=== PATIENT | female | born 1975 | race American Indian/Alaskan Native ===

== ENCOUNTER 2018-08-18 15:32 | Emergency (ER) | payer MEDICAID, OTHER ==
[2018-08-18 16:32] LABS: ANION GAP 11.4; CHLORIDE,CL 105 mmol/L (101-111); SODIUM,NA 135 mmol/L (135-145)
--- NOTE | 2018-08-18 16:32 | EDM.PDOC ---
ED HPI GENERAL MEDICAL PROBLEM - General Chief Complaint: Flank Pain Stated Complaint: [facility] Time Seen by Provider: 08/18/18 16:32 Source of Information: Reports: Patient, EMS, EMS Notes Reviewed, Provider (Dr. Adame), RN, RN Notes Reviewed History Limitations: Reports: No Limitations - History of Present Illness INITIAL COMMENTS - FREE TEXT/NARRATIVE: Patient presents to ER per [facility] from [facility] with complaint of back pain since Friday evening, headaches and fever. Rates her pain 8/10. She has had no chest pain, shortness of breath, nausea, vomiting, diarrhea, urinary symptoms or cough. Onset Date: 08/16/18 Duration: Getting Worse Location: Reports: Back Quality: Reports: Ache Severity: Severe Improves with: Reports: None Worsens with: Reports: None Associated Symptoms: Reports: No Other Symptoms Left Flank Pain Score (Numeric/FACES): 8 - Related Data Allergies Allergy/AdvReac Type Severity Reaction Status Date / Time No Known Allergies Allergy Verified 08/18/18 15:42 Past Medical History - Past Health History Medical/Surgical History: Denies Medical/Surgical History Social & Family History - Tobacco Use Smoking Status *Q: Current Every Day Smoker Years of Tobacco use: 1 Packs/Tins Daily: 0.3 ED ROS GENERAL - Review of Systems Review Of Systems: ROS reveals no pertinent complaints other than HPI. ED EXAM, RENAL/ - Physical Exam Exam: See Below Exam Limited By: No Limitations General Appearance: Anxious (and tearful) Eye Exam: Bilateral Eye: EOMI, Normal Inspection, PERRL Ears: Normal External Exam, Normal Canal, Hearing Grossly Normal, Normal TMs Nose: Normal Inspection, Normal Mucosa, No Blood Throat/Mouth: Normal Inspection, Normal Lips, Normal Teeth, Normal Gums, Normal Oropharynx, Normal Voice, No Airway Compromise Head: Atraumatic, Normocephalic Neck: Normal Inspection, Supple, Non-Tender, Full Range of Motion Respiratory/Chest: No Respiratory Distress, Lungs Clear, Normal Breath Sounds, No Accessory Muscle Use, Chest Non-Tender Cardiovascular: Normal Peripheral Pulses, Regular Rate, Rhythm, No Edema, No Gallop, No JVD, No Murmur, No Rub GI/Abdominal: Normal Bowel Sounds, Soft, Non-Tender, No Organomegaly, No Distention, No Abnormal Bruit, No Mass (Female) Exam: Deferred Rectal (Female) Exam: Deferred Back Exam: CVA Tenderness (L), CVA Tenderness (R) Extremities: Normal Inspection, Normal Range of Motion, Non-Tender, Normal Capillary Refill, No Pedal Edema Neurological: Alert, Oriented, CN II-XII Intact, Normal Cognition, Normal Gait, Normal Reflexes, No Motor/Sensory Deficits Psychiatric: Anxious, Tearful Skin Exam: Warm, Dry, Intact, Normal Color, No Rash Lymphatic: No Adenopathy Course - Vital Signs Last Recorded V/S: Last Vital Signs Temp 97.9 F 08/18/18 15:10 Pulse 94 08/18/18 15:10 Resp 20 08/18/18 15:10 BP 109/69 08/18/18 15:10 Pulse Ox 100 08/18/18 15:10 - Orders/Labs/Meds Orders: Active Orders 24 hr Category Date Time Status CULTURE URINE [RM] Stat Lab 08/18/18 16:02 Received Labs: Laboratory Tests 08/18/18 08/18/18 08/18/18 Range/Units 16:02 16:06 16:06 WBC 15.8 H (5.0-10.0) 10^3/uL RBC 4.92 (4.2-5.4) 10^6/uL Hgb 10.5 L D (12.0-16.0) g/dL Hct 34.4 L (37.0-47.0) % MCV 69.9 L D (80-100) fL MCH 21.3 L (27.0-34.0) pg MCHC 30.5 L (33.0-35.0) g/dL Plt Count 265 (150-450) 10^3/uL Neut % (Auto) 79.4 H (42.2-75.2) % Lymph % (Auto) 10.4 L (20.5-50.1) % [place] % (Auto) 9.4 H (2-8) % Eos % (Auto) 0.7 L (1.0-3.0) % Baso % (Auto) 0.1 (0.0-1.0) % Sodium 135 (135-145) mmol/L Potassium 3.4 L (3.6-5.0) mmol/L Chloride 105 (101-111) mmol/L Carbon Dioxide 22.0 (21.0-31.0) mmol/L Anion Gap 11.4 BUN 6 L (7-18) mg/dL Creatinine 0.8 (0.6-1.3) mg/dL Est Cr Clr Drug Dosing 74.23 mL/min Estimated GFR (MDRD) > 60 BUN/Creatinine Ratio 7.50 Glucose 100 (74-105) mg/dL Calcium 8.0 L (8.4-10.2) mg/dl Total Bilirubin 0.6 (0.2-1.0) mg/dL AST 12 (10-42) IU/L ALT 10 (10-60) IU/L Alkaline Phosphatase 71 (42-121) IU/L Total Protein 6.8 (6.7-8.2) g/dl Albumin 3.2 (3.2-5.5) g/dl Globulin 3.6 Albumin/Globulin Ratio 0.89 Urine Color Yellow (YELLOW) Urine Appearance Slightly cloudy (CLEAR) Urine pH 5.5 (5.0-9.0) Ur Specific [place] <= 1.005 (1.005-1.030) Urine Protein Negative (NEGATIVE) Urine Glucose (UA) Negative (NEGATIVE) Urine Ketones Negative (NEGATIVE) Urine Occult Blood Trace-intact H (NEGATIVE) Urine Nitrite Negative (NEGATIVE) Urine Bilirubin Negative (NEGATIVE) Urine Urobilinogen 0.2 (0.2-1.0) mg/dL Ur Leukocyte Esterase Small H (NEGATIVE) Urine RBC 0-5 /HPF Urine WBC 20-30 H (0-5/HPF) /HPF Ur Epithelial Cells Moderate H /HPF Amorphous Sediment Few (0/HPF) /HPF Urine Bacteria Few (0-FEW/HPF) /HPF Urine Mucus Rare /LPF Meds: Medications Discontinued Medications Generic Name Dose Route Start Last Admin Trade Name Freq PRN Reason Stop Dose Admin Ciprofloxacin 500 mg 08/18/18 18:14 Ciprofloxacin Hcl PO 08/18/18 18:15 ONETIME ONE Hydromorphone HCl 1 mg 08/18/18 16:42 08/18/18 16:51 Dilaudid IVPUSH 08/18/18 16:43 1 mg ONETIME ONE Administration Iopamidol 75 ml 08/18/18 16:59 Isovue-300 (61%) IVPUSH 08/18/18 17:00 ONETIME ONE - Radiology Interpretation Free Text/Narrative:: CT abdomen and pelvis: No signs of acute peritonitis. No renal stones or obstructive uropathy. Small left renal and possible urinary bladder lesions ( see above). See rad report. Departure - Departure Time of Disposition: 18:15 Disposition: Home, Self-Care 01 Condition: Fair Clinical Impression: UTI, Urinary tract infectious disease, Pyelonephritis - Discharge Information *PRESCRIPTION DRUG MONITORING PROGRAM REVIEWED*: No *COPY OF PRESCRIPTION DRUG MONITORING REPORT IN PATIENT MARCELO: No Instructions: Urinary Tract Infection, Adult, [id number], Pyelonephritis, Adult, [id number] Forms: ED Department Discharge Additional Instructions: RX: Cipro May use Tylenol and/or Ibuprofen as directed for pain Drink plenty of water Follow up with your primary care facility regarding suspicious spots on the kidneys and bladder. - My Orders Last 24 Hours: My Active Orders 08/18/18 16:02 CULTURE URINE [RM] Stat - Assessment/Plan Last 24 Hours: My Active Orders 08/18/18 16:02 CULTURE URINE [RM] Stat
[2018-08-18] MEDS ORDERED: HYDROmorphone 1 MG/ML Syringe IVPUSH ONE (16:42)
[2018-08-18] MEDS ORDERED: Iopamidol 612 MG/ML 75 ML Bottle IVPUSH ONE (16:59)
--- NOTE | 2018-08-18 17:25 | CT ---
Medical history: 43-year-old 175 pound female "smoker" with left flank (back) pain and leukocytosis (15,800). Trace hematuria. Scan technique: Volume acquisition of data from the abdomen and pelvis obtained without oral contrast but during the intravenous administration 75 cc nonionic Isovue (3 cc/s via injector) while patient was lying supine on the slice scanner [place], [place]. All data archived in the PACS system for storage, reformatting and study. Interpretation: 1. Symmetric normal reniform size, axis and configuration. Two (2) small round cortical lesions located respectively mid pole anteriorly and posteriorly lower pole left kidney that may represent infected or hemorrhagic cyst but cannot exclude a neoplasm and recommend elective follow-up ultrasound or MRI exam. 2. No sign of nephrolithiasis or obstructive uropathy. Symmetrically distended urinary bladder has a focal area of wall thickness anterior superiorly on the right and also warrants follow-up. No intraluminal bladder stones. 3. Cholecystectomy. Liver, stomach, spleen, pancreas and adrenal glands unremarkable i.e. negative. Normal appendix RLQ. 4. Normal caliber aortoiliac vessels. No aneurysm or dissection. Normal lumbar spine without sign of disc disease or fracture. 5. Midline uterus unremarkable. No adnexal mass lesion or mesenteric/retroperitoneal lymphadenopathy. 6. No abdominal mass lesion, signs of mechanical bowel obstruction, inflammatory "dirty" peritoneal fat, ascites or free intraperitoneal air. CONCLUSION: No signs of acute peritonitis. No renal stones or obstructive uropathy. Small left renal and possible urinary bladder lesions (see above).
[2018-08-18] MEDS ORDERED: Ciprofloxacin 500 MG Tab PO ONE (18:14)
== END 2018-08-18 18:28 | disposition home or self-care (01) ==
LOC: DL.ED 15:32
DX: N12 Tubulo-interstitial nephritis, not specified as acute or chronic (principal); F17.210 Nicotine dependence, cigarettes, uncomplicated
CPT/HCPCS: 36415; 74177; 80053; 81001; 85025; 87086; 96374; 99285; J1170; Q9967; 87088; 87186

== ENCOUNTER 2018-08-20 14:53 | Emergency (ER) | payer MEDICAID, OTHER ==
[2018-08-20] MEDS ORDERED: Ciprofloxacin 500 MG Tab PO ONE ×2 (14:54→17:42)
[2018-08-20] MEDS ORDERED: Ondansetron 4 MG Tab.DIS PO ONE (14:54)
[2018-08-20] MEDS ORDERED: Ketorolac 30 MG/ML SDV IM ONE (17:43)
[2018-08-20] MEDS ORDERED: cefTRIAXone 2 GM Vial IM ONE (17:44)
[2018-08-20] MEDS ORDERED: cefTRIAXone 1 GM Vial IM ONE (17:55)
[2018-08-20] MEDS ORDERED: cefTRIAXone 1 GM, Lidocaine 1% 2.1 ML IM ONE ×2 (18:00)
--- NOTE | 2018-08-20 18:00 | EDM.PDOC ---
ED HPI GENERAL MEDICAL PROBLEM - General Chief Complaint: Genitourinary Problem Stated Complaint: ambulance Time Seen by Provider: 08/20/18 17:25 Source of Information: Reports: Patient History Limitations: Reports: No Limitations - History of Present Illness INITIAL COMMENTS - FREE TEXT/NARRATIVE: patient comes emergency department today by ambulance with complaints of left- sided flank pain fever chills. The patient was diagnosed with pyelonephritis on . She was seen for this in the emergency department and given a prescription for Cipro. Over the past 2 days she has continued to have malaise fatigue and she is very tired. She has had some nausea with no vomiting. 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 She doesn' t understand why she's not getting better. She has a good appetite she's been eating and drinking fluids. She has been urinating a normal amount. No new symptomology than her initial presentation to the emergency department when she was diagnosed with pyelonephritis. She hasn't picked up her medications because she hasn't felt well enough to do so.she has had no weakness dizziness lightheadedness. No syncope Left Flank Pain Score (Numeric/FACES): 5 - Related Data Allergies Allergy/AdvReac Type Severity Reaction Status Date / Time No Known Allergies Allergy Verified 08/20/18 15:02 Home Meds: Home Meds . [No Known Home Meds] 08/20/18 [History] Past Medical History - Past Health History Medical/Surgical History: Denies Medical/Surgical History ED ROS GENERAL - Review of Systems Review Of Systems: ROS reveals no pertinent complaints other than HPI. ED EXAM, GI/ABD - Physical Exam Exam: See Below Exam Limited By: No Limitations General Appearance: Alert, WD/WN, No Apparent Distress Ears: Normal External Exam, Normal TMs Nose: Normal Inspection, Normal Mucosa Throat/Mouth: Normal Inspection, Normal Lips, Normal Teeth, Normal Oropharynx ( oral mucosa is moist. ) Head: Atraumatic, Normocephalic Neck: Normal Inspection, Supple, Non-Tender Respiratory/Chest: No Respiratory Distress, Lungs Clear, Normal Breath Sounds, No Accessory Muscle Use Cardiovascular: Normal Peripheral Pulses, Regular Rate, Rhythm, Tachycardia GI/Abdominal Exam: Normal Bowel Sounds, Soft, Non-Tender Back Exam: Full Range of Motion, CVA Tenderness (L). No: CVA Tenderness (R) Extremities: Normal Inspection, Normal Range of Motion Neurological: Alert, Oriented, Normal Cognition, No Motor/Sensory Deficits Psychiatric: Normal Affect Skin Exam: Warm, Dry, Intact, Normal Color. No: Diaphoretic Course - Vital Signs Last Recorded V/S: Last Vital Signs Temp 36.8 C 08/20/18 17:11 Pulse 106 H 08/20/18 17:11 Resp 16 08/20/18 17:11 BP 96/53 L 08/20/18 17:11 Pulse Ox 94 L 08/20/18 17:11 - Orders/Labs/Meds Labs: Laboratory Tests 08/20/18 Range/Units 15:00 Urine Color Yellow (YELLOW) Urine Appearance Cloudy (CLEAR) Urine pH 5.5 (5.0-9.0) Ur Specific [place] 1.015 (1.005-1.030) Urine Protein 100 H (NEGATIVE) Urine Glucose (UA) Negative (NEGATIVE) Urine Ketones Negative (NEGATIVE) Urine Occult Blood Small H (NEGATIVE) Urine Nitrite Negative (NEGATIVE) Urine Bilirubin Negative (NEGATIVE) Urine Urobilinogen 0.2 (0.2-1.0) mg/dL Ur Leukocyte Esterase Moderate H (NEGATIVE) Urine RBC 5-10 H /HPF Urine WBC >100 H (0-5/HPF) /HPF Ur Epithelial Cells Moderate H /HPF Urine Bacteria Moderate H (0-FEW/HPF) /HPF Urine Mucus Few H /LPF Meds: Medications Discontinued Medications Generic Name Dose Route Start Last Admin Trade Name Freq PRN Reason Stop Dose Admin Ceftriaxone Sodium 2 gm 08/20/18 17:44 08/20/18 17:59 Rocephin IM 08/20/18 17:45 Not Given ONETIME ONE Ceftriaxone Sodium 1 gm 08/20/18 17:55 Rocephin IM 08/20/18 17:56 ONETIME ONE Ciprofloxacin 500 mg 08/20/18 17:42 08/20/18 17:56 Ciprofloxacin Hcl PO 08/20/18 17:43 500 mg ONETIME ONE Administration Ciprofloxacin Confirm 08/20/18 18:23 08/20/18 18:27 Ciprofloxacin Hcl Administered 08/20/18 18:24 Not Given Dose 500 mg .ROUTE .STK-MED ONE Ceftriaxone Sodium 1 gm/ 0 gm 08/20/18 18:00 08/20/18 18:08 Lidocaine HCl 2.1 ml IM 08/20/18 18:01 2.1 inj ONETIME ONE Administration Ketorolac Tromethamine 30 mg 08/20/18 17:43 08/20/18 17:56 Toradol IM 08/20/18 17:44 30 mg ONETIME ONE Administration Lidocaine HCl Confirm 08/20/18 18:01 08/20/18 18:07 Xylocaine-Mpf 1% Administered 08/20/18 18:02 Not Given Dose 30 ml .ROUTE .STK-MED ONE Ondansetron HCl Confirm 08/20/18 18:01 08/20/18 18:07 Zofran Odt Administered 08/20/18 18:02 Not Given Dose 8 mg .ROUTE .STK-MED ONE - Re-Assessments/Exams Free Text/Narrative Re-Assessment/Exam: 08/20/18 Ketorolac IM after her fever improved as well did her heart rate. She feels much better. She was given Cipro PO and ceftriaxone 1 gram IM. she is drinking oral fluids well in the emergency department. She is tolerating them well. I discussed with her at length that when you have a kidney infection if you do not get your antibiotics he will not improved. She needs to go home and rest get her prescriptions filled right away in the morning and ensure that she is drinking a lot of fluids. She does feel much better on discharge. She is comfortable with this plan and her questions are answered. Departure - Departure Time of Disposition: 17:55 Disposition: Home, Self-Care 01 Clinical Impression: Pyelonephritis, Non compliance w medication regimen - Discharge Information Instructions: Pyelonephritis, Adult, [id number] Forms: ED Department Discharge Additional Instructions: THE FIRST THING YOU DO TOMORROW IS GET YOUR MEDICATION FOR YOUR KIDNEY INFECTION !!!!! YOU WILL NOT GET BETTER WITHOUT IT. I have given you your dose for today and the morning. Increase fluid intake over the next few days as much as possible. Tylenol and or Ibuprofen as needed for pain fever discomfort. If you are unable to keep your medications down you must be rechecked. Zofran, 1 tablet every 6 hrs as needed for nausea. RX given to the patient and 2 sent home with the patient from the ED. Return to the ED if new or worsening symptoms. Follow up with primary care provider in the next 4-6 days if not improving sooner if worse. - Assessment/Plan Assessment:: Pyelonephritis noncompliance with medication regimen Plan: THE FIRST THING YOU DO TOMORROW IS GET YOUR MEDICATION FOR YOUR KIDNEY INFECTION !!!!! YOU WILL NOT GET BETTER WITHOUT IT. I have given you your dose for today and the morning. Increase fluid intake over the next few days as much as possible. Tylenol and or Ibuprofen as needed for pain fever discomfort. If you are unable to keep your medications down you must be rechecked. Zofran, 1 tablet every 6 hrs as needed for nausea. RX given to the patient and 2 sent home with the patient from the ED. Return to the ED if new or worsening symptoms. Follow up with primary care provider in the next 4-6 days if not improving sooner if worse.
[2018-08-20] MEDS ORDERED: Lidocaine 1% 30 ML SDV ONE (18:01)
[2018-08-20] MEDS ORDERED: Ondansetron 4 MG Tab.DIS ONE (18:01)
[2018-08-20] MEDS ORDERED: Ciprofloxacin 500 MG Tab ONE (18:23)
== END 2018-08-20 18:35 | disposition home or self-care (01) ==
LOC: DL.ED 14:53
DX: N12 Tubulo-interstitial nephritis, not specified as acute or chronic (principal); Z91.14 Patient's other noncompliance with medication regimen
CPT/HCPCS: 81001; 96372; 96374; 99284-25; A9270-GY; J0696; J1885; J2001

== ENCOUNTER 2019-06-15 15:19 | Emergency (ER) | payer MEDICAID, OTHER ==
--- NOTE | 2019-06-17 09:39 | EDM.PDOC ---
Scribed by Giselle Lindo 06/15/19 [id number] for Emily Welsh PA-C ED HPI GENERAL MEDICAL PROBLEM - General Chief Complaint: Respiratory Problem Stated Complaint: CO2 EXPOSURE Time Seen by Provider: 06/15/19 15:40 Source of Information: Reports: Patient, EMS, EMS Notes Reviewed, RN, RN Notes Reviewed - History of Present Illness INITIAL COMMENTS - FREE TEXT/NARRATIVE: Patient presents to ER by [facility] with stomach pain and headache that started this afternoon in the main room of a house. Family noticed getting exposed to carbon monoxide from next door swelling. Other family noticed odor getting stronger and Public Health came and checked (level 5 -6) on kitchen monitor. No vomiting. No respiratory difficulty. Onset: Today Duration: Getting Worse Location: Reports: Generalized Severity: Moderate Improves with: Reports: None Worsens with: Reports: None Associated Symptoms: Reports: No Other Symptoms Head Pain Score (Numeric/FACES): 7 - Related Data Allergies Allergy/AdvReac Type Severity Reaction Status Date / Time No Known Allergies Allergy Verified 06/15/19 15:36 Home Meds: Home Meds . 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: Musculoskeletal History: Reports: None Neurological History: Reports: None Psychiatric History: Reports: None Endocrine/Metabolic History: Reports: None Hematologic History: Reports: None Immunologic History: Reports: None Oncologic (Cancer) History: Reports: None Dermatologic History: Reports: None - Infectious Disease History Infectious Disease History: Reports: None - Past Surgical History Head Surgeries/Procedures: Reports: None HEENT Surgical History: Reports: None Cardiovascular Surgical History: Reports: None Respiratory Surgical History: Reports: None GI Surgical History: Reports: None Female Surgical History: Reports: None Endocrine Surgical History: Reports: None Neurological Surgical History: Reports: None Musculoskeletal Surgical History: Reports: None Oncologic Surgical History: Reports: None Dermatological Surgical History: Reports: None Social & Family History - Family History Family Medical History: Noncontributory - Tobacco Use Smoking Status *Q: Current Every Day Smoker Years of Tobacco use: 10 Packs/Tins Daily: 0.2 - Caffeine Use Caffeine Use: Reports: Coffee, Soda - Recreational Drug Use Recreational Drug Use: No ED ROS GENERAL - Review of Systems Review Of Systems: Comprehensive ROS is negative, except as noted in HPI. ED EXAM, GENERAL - Physical Exam Exam: See Below Exam Limited By: No Limitations General Appearance: Other (acute distress) Eye Exam: Bilateral Eye: EOMI, Normal Inspection, PERRL Ears: Normal External Exam, Normal Canal, Hearing Grossly Normal, Normal TMs Nose: Normal Inspection, Normal Mucosa, No Blood Throat/Mouth: Normal Inspection, Normal Lips, Normal Teeth, Normal Gums, Normal Oropharynx, Normal Voice, No Airway Compromise Head: Atraumatic, Normocephalic Neck: Normal Inspection, Supple, Non-Tender, Full Range of Motion Respiratory/Chest: Lungs Clear (bilaterally. ), Normal Breath Sounds. No: Rales , Rhonchi, Wheezing Cardiovascular: Regular Rate, Rhythm, No Murmur GI/Abdominal: Normal Bowel Sounds (x4), Soft (Female) Exam: Deferred Rectal (Female) Exam: Deferred Back Exam: Normal Inspection Extremities: Normal Inspection, Other (moves without limitations) Neurological: Alert, Oriented, CN II-XII Intact, Normal Cognition, Normal Gait, Normal Reflexes, No Motor/Sensory Deficits Psychiatric: Normal Affect, Normal Mood, Anxious Skin Exam: Warm, Dry, Intact, Normal Color. No: Pallor Course - Vital Signs Last Recorded V/S: Last Vital Signs Temp 98.5 F 06/15/19 17:18 Pulse 94 06/15/19 17:18 Resp 20 06/15/19 17:18 BP 113/61 06/15/19 17:18 Pulse Ox 100 06/15/19 17:18 - Re-Assessments/Exams Free Text/Narrative Re-Assessment/Exam: Stable, VS, No sx Prior to discharge. Departure - Departure Time of Disposition: 17:50 Disposition: Home, Self-Care 01 Condition: Good Clinical Impression: Exposure to carbon monoxide Diarrhea Qualifiers: Diarrhea type: unspecified type Qualified Code(s): R19.7 - Diarrhea, unspecified - Discharge Information Instructions: Carbon Monoxide Poisoning, [id number], Diarrhea, Adult, Easy-to -Read Forms: ED Department Discharge Additional Instructions: light diet increase fluid intake avoid tobacco smoke follow up if worsening symptoms, headache dizziness, vomiting get lots of fresh air, check home prior to reentry Sepsis Event Note - Evaluation Sepsis Screening Result: No Definite Risk - Focused Exam Date Exam was Performed: 06/17/19 Time Exam was Performed: 09:36 I have read and agree with the documentation that has been completed regarding this visit. By signing this record, I attest that the documentation was completed in my physical presence and is an accurate record of the encounter.
== END 2019-06-15 18:28 | disposition home or self-care (01) ==
LOC: DL.ED 15:19
DX: R19.7 Diarrhea, unspecified (principal); Z77.098 Contact with and (suspected) exposure to other hazardous, chiefly nonmedicinal, chemicals; F17.210 Nicotine dependence, cigarettes, uncomplicated
CPT/HCPCS: 99284

== ENCOUNTER 2021-11-04 03:42 | Emergency (ER) | payer MEDICAID, OTHER ==
[2021-11-04] MEDS ORDERED: Cephalexin 500 MG Cap PO ONE (03:43)
[2021-11-04 04:21] LABS: CORONAVIRUS COVID-19 NAA NEGATIVE (NEGATIVE); RESPIRATORY SYNCYTIAL VIR NAA NEGATIVE (NEGATIVE)
[2021-11-04 04:36] LABS: ANION GAP 15.3 mEq/L (7-13); CHLORIDE,CL 102 mmol/L (98-107); SODIUM,NA 136 mmol/L (136-145)
[2021-11-04] MEDS ORDERED: Sodium Chloride 0.9% 1,000 ML IV ONE (05:04)
[2021-11-04] MEDS ORDERED: Potassium Chloride 10 MEQ Tab.ER PO ONE (05:07)
[2021-11-04] MEDS ORDERED: Acetaminophen 325 MG Tab PO ONE (05:42)
[2021-11-04] MEDS ORDERED: cefTRIAXone 1 GM in Sodium Chloride 0.9% 50 ML IV ONE (06:26)
[2021-11-04] MEDS ORDERED: Cephalexin 500 MG Cap ONE (07:11)
== END 2021-11-04 07:27 | disposition home or self-care (01) ==
LOC: DL.ED 03:42
DX: N12 Tubulo-interstitial nephritis, not specified as acute or chronic (principal); D50.9 Iron deficiency anemia, unspecified; E86.0 Dehydration; Z20.822 Contact with and (suspected) exposure to COVID-19
CPT/HCPCS: 0241U; 36415; 71045; 74176; 80053; 81001; 83605; 83735; 85025; 87040; 96361; 96365; 99285; A9270; J0696; J7030